=== PATIENT | female | born 1970 | race Caucasian/White ===

== ENCOUNTER 2016-05-10 13:36 | Emergency (ER) | payer MEDICARE, MEDICAID ==
[~2016-05-10] VITALS: Ht 162.6 cm; Wt 80.0 kg
[~2016-05-10 13:36] MED LIST: ATEN-100 PO; CARB200T16 PO; CLON.5 PO; FAMO20 PO; GABA600T PO; HYDR200T42 PO; INFL1INJ54 IM; LEXA20TA PO; LISI-363 PO; OXYC15TA PO; PANT20 PO; PRED5TAB PO; PROM25TA5 PO; QUET400T PO; RANI150 PO
[2016-05-10 16:29] VITALS: BP 126/72; PULSE 78; RESP 16; TEMP 98.2; O2SAT 99
[2016-05-10] MEDS ORDERED: LISI-519 PO (17:12)
[2016-05-10] MEDS ORDERED: ATEN25TA PO (17:12)
[2016-05-10] MEDS ORDERED: TEGR200T PO (17:13)
[2016-05-10 17:14] VITALS: BP 135/84; PULSE 74; RESP 18; O2SAT 100
[2016-05-10] MEDS ORDERED: SODIUM CHLOR 0.9% 1000 ML INJ 1,000 ML IV ONE (17:20)
[2016-05-10] MEDS ORDERED: SODIUM CHLORIDE 0.9% FLUSH 5 ML FLUSH IVF PRN (17:30)
[2016-05-10] MEDS ORDERED: ONDANSETRON HCL 4 MG/2 ML VIAL IV PUSH ONE (17:30)
[2016-05-10 17:43] LABS: BASOPHIL % 0.8 % (0.0-2.0); EOSINOPHIL # 0.2 TH/MM3 (0-0.4); EOSINOPHIL % 3.3 % (0.0-4.0); HEMATOCRIT 35.3 % (35.0-46.0); HEMO FLAGS DIFF FINAL; LYMPH % 24.7 % (9.0-44.0); LYMPHOCYTE # 1.5 TH/MM3 (1.0-4.8); MEAN CELL VOLUME 88.1 FL (80.0-100.0); MEAN CORPUSCULAR HEMOGLOBIN 28.6 PG (27.0-34.0); MEAN CORPUSCULAR HGB CONC 32.5 % (32.0-36.0); MONO % 5.5 % (0.0-8.0); NEUT % 65.7 % (16.0-70.0); PLATELET COUNT 282 TH/MM3 (150-450); RED BLOOD COUNT 4.01 MIL/MM3 (4.00-5.30)
[2016-05-10 17:58] LABS: ALT (GPT) 24 U/L (10-53); ANION GAP 13 MEQ/L (5-15); AST (GOT) 32 U/L (15-37); BICARBONATE 19.3 MEQ/L (21.0-32.0); BLOOD UREA NITROGEN 16 MG/DL (7-18); CHLORIDE 115 MEQ/L (98-107); GLOMERULAR FILTRATION RATE 79 ML/MIN (>89); SODIUM (NA) 147 MEQ/L (136-145)
[2016-05-10 18:00] LABS: ALKALINE PHOSPHATASE 84 U/L (45-117); TOTAL BILIRUBIN ADULT 0.3 MG/DL (0.2-1.0)
[2016-05-10 18:12] LABS: BACTERIA, URINE FEW /hpf; BLOOD, URINE NEG (NEG); GLUCOSE,URINE NEG (NEG); KETONE, URINE NEG (NEG); NITRITE,URINE NEG (NEG); SQUAMOUS EPITHELIAL CELL URINE 2 /hpf (0-5); URINE COLOR LIGHT-YELLOW (YELLW/STRAW)
[2016-05-10 18:15] LABS: AMPHETAMINE, URINE NEG (NEG); BARBITURATES, URINE NEG (NEG); COCAINE, URINE NEG (NEG)
[2016-05-10] MEDS ORDERED: OXYC15TA PO (18:27)
[2016-05-10] MEDS ORDERED: LEXA20TA PO (18:27)
[2016-05-10] MEDS ORDERED: GABA600T PO (18:27)
[2016-05-10] MEDS ORDERED: PLAQ200T PO (18:27)
[2016-05-10] MEDS ORDERED: SERO100T PO (18:27)
[2016-05-10] MEDS ORDERED: CLON1 PO (18:27)
[2016-05-10] MEDS ORDERED: QUET1TAB11 PO (18:27)
[2016-05-10] MEDS ORDERED: ZANTTAB9 PO (18:28)
[2016-05-10] MEDS ORDERED: PROT40TA PO (18:29)
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
[2016-05-10] MEDS ORDERED: carBAMazepine 200 MG TAB PO ONE (19:30)
== END 2016-05-10 19:46 | disposition left against medical advice (07) ==
LOC: NEPA 13:36
DX: F10.10 Alcohol abuse, uncomplicated (principal); Z53.21 Procedure and treatment not carried out due to patient leaving prior to being seen by health care provider; R56.9 Unspecified convulsions; I48.91 Unspecified atrial fibrillation; E78.00 Pure hypercholesterolemia, unspecified; I10 Essential (primary) hypertension
CPT/HCPCS: 80053; 80156; 80307; 81001; 83690; 84703; 85025; 96374; 99284; J2405; J7030

== ENCOUNTER 2016-05-11 12:29 | Emergency (ER) | payer MEDICARE, MEDICAID ==
[~2016-05-11] VITALS: Ht 162.6 cm; Wt 85.0 kg
[~2016-05-11 12:29] MED LIST changes: -ATEN-100 PO; +ATEN25TA PO; -CARB200T16 PO; -CLON.5 PO; +CLON1 PO; -FAMO20 PO; -HYDR200T42 PO; -LISI-363 PO; +LISI-519 PO; -PANT20 PO; +PLAQ200T PO; -PRED5TAB PO; -PROM25TA5 PO; +PROT40TA PO; +QUET1TAB11 PO; -QUET400T PO; -RANI150 PO; +SERO100T PO; +TEGR200T PO; +ZANTTAB9 PO
[2016-05-11 12:34] VITALS: BP 115/80; PULSE 97; RESP 18; TEMP 98.4; O2SAT 98
[2016-05-11 12:40] VITALS: BP 115/80; PULSE 96; PULSE 97; RESP 18; TEMP 98.4; O2SAT 98; O2SAT 99
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
[2016-05-11] MEDS ORDERED: SODIUM CHLORIDE 0.9% FLUSH 5 ML FLUSH IVF PRN (12:45)
[2016-05-11] MEDS ORDERED: ONDANSETRON ODT 4 MG TAB PO ONE (13:15)
[2016-05-11 13:32] LABS: AUTOMATED NEUTROPHIL # 14.6 TH/MM3 (1.8-7.7); EOSINOPHIL % 0.2 % (0.0-4.0); HEMATOCRIT 39.3 % (35.0-46.0); HEMO FLAGS DIFF FINAL; LYMPH % 3.6 % (9.0-44.0); LYMPHOCYTE # 0.6 TH/MM3 (1.0-4.8); MEAN CELL VOLUME 86.1 FL (80.0-100.0); MEAN CORPUSCULAR HEMOGLOBIN 28.7 PG (27.0-34.0); MEAN CORPUSCULAR HGB CONC 33.3 % (32.0-36.0); MONO % 2.2 % (0.0-8.0); PLATELET COUNT 351 TH/MM3 (150-450); RED BLOOD COUNT 4.57 MIL/MM3 (4.00-5.30); RED CELL DISTRIBUTION WIDTH 15.1 % (11.6-17.2); WHITE BLOOD COUNT 15.5 TH/MM3 (4.0-11.0)
[2016-05-11 13:40] LABS: AMPHETAMINE, URINE NEG (NEG); BARBITURATES, URINE NEG (NEG); COCAINE, URINE NEG (NEG)
[2016-05-11] MEDS ORDERED: LIDOCAINE VISCOUS 2% SOLN 15 ML UDC PO ONE ×2 (14:15→18:00)
[2016-05-11] MEDS ORDERED: ALUMINUM/MAGNESIUM/SIMETH 30 ML CUP PO ONE ×2 (14:15→18:00)
[2016-05-11] MEDS ORDERED: NAPROXEN 500 MG TAB PO ONE (14:15)
[2016-05-11] MEDS ORDERED: PROMETHAZINE HCL 25 MG TAB PO ONE (14:30)
[2016-05-11 14:36] LABS: BLOOD UREA NITROGEN 17 MG/DL (7-18); GLOMERULAR FILTRATION RATE 66 ML/MIN (>89)
[2016-05-11 14:37] LABS: ALKALINE PHOSPHATASE 108 U/L (45-117); ALT (GPT) 31 U/L (10-53); ANION GAP 16 MEQ/L (5-15); AST (GOT) 55 U/L (15-37); BICARBONATE 18.1 MEQ/L (21.0-32.0); CHLORIDE 112 MEQ/L (98-107); SODIUM (NA) 146 MEQ/L (136-145); TOTAL BILIRUBIN ADULT 0.3 MG/DL (0.2-1.0)
[2016-05-11 14:38] LABS: BETA HCG QUANT LESS THAN 1 MIU/ML (0-5)
[2016-05-11 14:39] LABS: ACETAMINOPHEN LESS THAN 2.0 MCG/ML (10.0-30.0)
[2016-05-11 14:48] VITALS: BP 138/95; PULSE 106; RESP 18; O2SAT 100
[2016-05-11 16:07] VITALS: BP 134/91; PULSE 106; RESP 20; TEMP 98.2; O2SAT 98
[2016-05-11] MEDS ORDERED: SUCRALFATE 1 GM TAB PO ONE (18:00)
[2016-05-11] MEDS ORDERED: FLUMAZENIL 0.5 MG/5 ML VIAL IV PUSH PRN (20:30)
[2016-05-11] MEDS ORDERED: LORazepam 2 MG TAB PO PRN (20:30)
[2016-05-11] MEDS ORDERED: LORazepam 2 MG/ML VIAL IV PUSH PRN ×4 (20:30)
[2016-05-11] MEDS: LORazepam 1 MG TAB PO PRN (20:36)
[2016-05-11] MEDS: carBAMazepine 200 MG TAB PO SCH (20:36)
[2016-05-11] MEDS: GABAPENTIN 300 MG CAP PO SCH (20:36)
[2016-05-11] MEDS ORDERED: QUEtiapine FUMARATE 200 MG TAB PO SCH (21:00)
[2016-05-11 22:13] VITALS: BP 126/63; PULSE 114; RESP 20; O2SAT 95
--- NOTE | 2016-05-11 22:30 | RADRPT ---
EXAM DATE/TIME: 05/11/2016 21:56 [facility] COMPARISON: No previous studies available for comparison. INDICATIONS : Left leg pain. MEDICAL HISTORY : Hypercholesterolemia. Hypertension. Renal calculi. Seizures. Afib. Chest pain. Pneumonia. Cdiff. U lcer. Pancreatitis. GERD. LUPUS. Arthritis. Autoimmune hepatitis. Anemia. PTSD. Bipolar. Depression. Anxiety. Substance use. SURGICAL HISTORY : Tonsillectomy. Cholecystectomy. Nephrectomy, right. Gallstone removed. Endometrial ablation. Back serrato rgery. ENCOUNTER: Initial ACUITY: 4 - 6 days PAIN SCORE: 8/10 LOCATION: Left leg. TECHNIQUE: Venous ultrasound of the leg was performed from the inguinal ligament to the proximal calf. Real-jose c e, color Doppler and spectral tracing, compression and augmentation techniques were used. FINDINGS: There is normal compressibility of the deep venous system from the inguinal region to the proximal ca lf. No echogenic clot is seen in the lumen of the common femoral, femoral, popliteal, and posterior tibial veins. There is a normal response of the venous system to proximal and distal augmentation an d respiration. CONCLUSION: No DVT left leg. Abel Pringle MD on May 11, 2016 at 22:28 Board Certified Radiologist. This report was verified electronically.
[2016-05-12 00:17] VITALS: BP 137/76; PULSE 108; RESP 20; O2SAT 95
[2016-05-12] MEDS: LORazepam 1 MG TAB PO PRN (00:45)
[2016-05-12 02:17] VITALS: BP 122/76; PULSE 102; RESP 18; O2SAT 95
[2016-05-12] MEDS ORDERED: NAPROXEN 500 MG TAB PO ONE (04:30)
[2016-05-12 06:20] VITALS: BP 127/74; PULSE 88; RESP 18; O2SAT 96
[2016-05-12] MEDS: carBAMazepine 200 MG TAB PO SCH (08:24)
[2016-05-12] MEDS: GABAPENTIN 300 MG CAP PO SCH (08:24)
[2016-05-12] MEDS ORDERED: ATENOLOL 25 MG TAB PO SCH (09:00)
[2016-05-12] MEDS ORDERED: LISINOPRIL 5 MG TAB PO SCH (09:00)
[2016-05-12] MEDS ORDERED: HYDROXYCHLOROQUINE SULFATE 200 MG TAB PO SCH (09:00)
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
--- NOTE | 2016-05-12 10:46 | EKG ---
Date Performed: 05/11/2016 Time Performed: 12:41:56 PTAGE: 45 years EKG: Sinus rhythm NORMAL ECG PREVIOUS TRACING : 01/12/2015 19.34 Compared to prior tracing no significant change DOCTOR: Tonio Ford Interpretating Date/Time 05/12/2016 10:43:49
== END 2016-05-12 11:03 | disposition home or self-care (01) ==
LOC: NEPC 12:29 → NEPJ 05-12 11:03
DX: S61.512A Laceration without foreign body of left wrist, initial encounter (principal); R45.851 Suicidal ideations; T50.902A Poisoning by unspecified drugs, medicaments and biological substances, intentional self-harm, initial encounter; R51 Headache; M79.662 Pain in left lower leg; I10 Essential (primary) hypertension; G40.909 Epilepsy, unspecified, not intractable, without status epilepticus; E78.00 Pure hypercholesterolemia, unspecified; X78.9XXA Intentional self-harm by unspecified sharp object, initial encounter; Z86.2 Personal history of diseases of the blood and blood-forming organs and certain disorders involving the immune mechanism; Z87.39 Personal history of other diseases of the musculoskeletal system and connective tissue; Z86.79 Personal history of other diseases of the circulatory system; Z86.59 Personal history of other mental and behavioral disorders; Z87.19 Personal history of other diseases of the digestive system; Z87.448 Personal history of other diseases of urinary system; Z86.69 Personal history of other diseases of the nervous system and sense organs; Z87.01 Personal history of pneumonia (recurrent)
CPT/HCPCS: 12001; 80053; 80307; 84702; 85025; 93005; 93971; 99285; Q0169